=== PATIENT | female | born 1980 | race Caucasian/White ===

== ENCOUNTER 2018-02-28 10:21 | Observation (INO) | payer BC ==
[~2018-02-28 10:21] MED LIST: Clindamycin 900 MG/D5W BAG(*) 900 MG/50 ML BAG IVPB ONE
[2018-02-28] MEDS ORDERED: Ondansetron INJ* 2 MG/ML VIAL ONE ×4 (10:25→19:52)
[2018-02-28] MEDS ORDERED: Scopolamine 1.5 mg* PATCH ONE (10:25)
[2018-02-28] MEDS ORDERED: Naproxen TAB* 250 MG ONE (10:25)
[2018-02-28] MEDS ORDERED: LORazepam TAB(*) 1 MG ONE (10:26)
[2018-02-28] MEDS ORDERED: oxyCODONE SR TAB(*) 10 MG TAB.SR ONE (10:26)
[2018-02-28 11:19] LABS: ABS Basophils 0 10^3/ul (0-0.2); ABS Eosinophils 0 10^3/ul (0-0.6); ABS Lymphocytes 1.1 10^3/ul (1.0-4.8); ABS Monocytes 0.4 10^3/ul (0-0.8); ABS Neutrophils 2.3 10^3/ul (1.5-7.7); ABS Nucleated RBC 0 10^3/ul; Eosinophil % 0.5 % (0-6); Hematocrit 40 % (35-47); Hemoglobin 14.1 g/dl (12.0-16.0); Lymphocyte % 28.8 % (25-47); Mean Corpuscular HGB Conc 35 g/dl (31-36); Mean Corpuscular Hemoglobin 32 pg (27-31); Mean Corpuscular Volume 92 fL (80-97); Nucleated Red Blood Cells % 0.1; Platelet Count 213 10^3/ul (150-450); Red Blood Count 4.39 10^6/ul (4.00-5.40); Red Cell Distribution Width 12 % (10.5-15); White Blood Count 3.8 10^3/ul (3.5-10.8)
[2018-02-28 11:30] LABS: INR 0.94 (0.77-1.02)
[2018-02-28 11:39] LABS: EGFR Non-African American 96.8 (>60)
[2018-02-28] MEDS ORDERED: fentaNYL* 50 MCG/ML 2 ML VIAL (100 MCG VIAL) ONE ×3 (14:02→15:58)
[2018-02-28] MEDS ORDERED: Iohexol 350 (CONTRAST) 200 ML MDV IV ONE ×2 (14:03→15:45)
[2018-02-28] MEDS ORDERED: Lidocaine 1% INJ* 10 MG/ML 30 ML SDV ONE (14:03)
[2018-02-28] MEDS ORDERED: Midazolam* 1 MG/ML 10 ML VIAL (10 MG) ONE (14:03)
[2018-02-28] MEDS ORDERED: Heparin 2 UNITS/ML IVPREMIX* 2,000 ML IV ONE (14:03)
[2018-02-28] MEDS ORDERED: Naloxone* 0.4 MG/ML 1 ML VIAL ONE (14:04)
[2018-02-28] MEDS ORDERED: Flumazenil* 0.1 MG/ML 5 ML MDV ONE (14:04)
[2018-02-28] MEDS ORDERED: nitroGLYCERIN DRIP* 25,000 MCG/250 ML BTL ONE (14:15)
[2018-02-28] MEDS ORDERED: Ketorolac INJ* 30 MG/ML 1 ML VIAL ONE ×2 (14:16→17:27)
[2018-02-28] MEDS ORDERED: HYDROmorphone PCA* 20 MG/20 ML PCA.SYRING ONE (14:30)
[2018-02-28] MEDS ORDERED: Heparin 2 UNITS/ML IVPREMIX* 1,000 ML IV ONE (17:13)
--- NOTE | 2018-02-28 18:37 | PN ---
Progress Note - Progress Note Date of Service: 02/28/18 SOAP: Subjective: Pain and nausea currently controlled. Objective: Selected Entries 02/28/18 02/28/18 18:00 18:17 Temperature 97.3 F Temperature Temporal Artery Source Scan Pulse Rate 56 Respiratory 16 Rate Blood Pressure 145/93 (mmHg) O2 Sat by Pulse 97 Oximetry Patient on Room Yes Air Sleepy, but arousable to voice. NAD Abd is soft, nontender Arteriotomy site is soft, nontender Dressing CDI 2+ pulses in RLE Assessment: 38 YOF status post UAE with pain and nausea adequately controlled in PACU. Plan: 1. Routine post UAE protocol. 2. To [facility]. 3. Hospitalists to admit.
[2018-02-28] MEDS ORDERED: PROCHLORPERAZINE INJ 5 MG/ML 2 ML VIAL IV PRN (20:56)
[2018-02-28] MEDS ORDERED: PROCHLORPERAZINE INJ 5 MG/ML 2 ML VIAL ONE (20:58)
--- NOTE | 2018-02-28 22:19 | HP ---
CC: Dr. Mckenzie; Dr. Colunga * [facility] MEDICINE HISTORY AND PHYSICAL: DATE OF ADMISSION: 02/28/18 PRIMARY CARE PHYSICIAN: Dr. Colunga. ATTENDING PHYSICIAN: Dr. Corey Ricks * (dictation provided by Sandy Pope NP). CHIEF COMPLAINT: Planned uterine fibroid embolization. HISTORY OF PRESENT ILLNESS: Ms. Laney Lucero is a 38-year-old female with a past medical history for depression and recent diagnosis of uterine fibroids who presented to the hospital today for a planned uterine fibroid embolization. Ms. Lucero is reported to have originally followed up at [facility] around 11/14/17 for concern of abdominal pain and at that time she went on for a pelvic ultrasound, which ultimately showed "fibroid uterus as described above with largest fibroid measuring approximately 15 cm in greatest dimension." She followed up with Dr. Andrews initially and then had had a consultation with Dr. Carlos Kauffman regarding a possible uterine fibroid embolization. She had subsequent followup with Dr. Mckenzie. The patient states that she has no wish for in the future and that she would like to have definitive treatment with a hysterectomy. Dr. Mckenzie has reviewed the case with Dr. Kauffman and the recommendation is for the patient to have undergo uterine fibroid embolization prior to her hysterectomy to decrease bleeding during surgery and also debulk the fibroids for ease of removal. PAST MEDICAL HISTORY: 1. Depression. 2. Uterine fibroids. FAMILY HISTORY: Reviewed. Noncontributory. SOCIAL HISTORY: Patient is reported to be a light smoker and to drink 2-3 times a week, approx 2-3 drinks. No report of drug abuse. REVIEW OF SYSTEMS: A 14-point review of systems was completed with Ms. Lucero and all those not mentioned above were negative. PHYSICAL EXAMINATION GENERAL: Ms. Lucero is lying in the bed. She is in no acute distress. VITAL SIGNS: Temperature 97.3, pulse rate 54, respiratory rate 16, O2 saturation 95% on room air, blood pressure 131/81. LUNGS: Clear to auscultation bilaterally with no accessory muscle use and good aeration. HEART: S1, S2. No murmur, rub, or gallop and regular. ABDOMEN: Soft, nontender. Bowel sounds positive x4. EXTREMITIES: No cyanosis or edema. NEUROLOGIC: She is drowsy after OR, but she awakens to voice and then falls back to sleep. She moves all extremities. There is no facial asymmetry or focal weakness. Extraocular movements are intact. SKIN: Intact. LABORATORY DATA: WBC 3.8, hemoglobin 14.1, hematocrit 40, platelet count 213. INR 0.94. Sodium 138, potassium 3.7, chloride 109, serum bicarbonate 22, BUN 12, creatinine 0.68, glucose 86. Beta-hCG less than 0.60. ASSESSMENT AND PLAN: Ms. Lucero is a 38-year-old female with a past medical history of depression and recent discovery of uterine fibroids leading to abdominal pain with plans ultimately for hysterectomy, who has presented today for a scheduled uterine fibroid embolization for debulking of fibroids prior to the surgery. Our plans are for observation in the hospital for the followin. Status post uterine fibroid embolization. The patient is currently in the PACU and is drowsy. She will be moving shortly over to short-stay surgical unit. While there, she will have pain medication and antiemetics as needed per routine. We will be advancing the diet starting with clear liquids as tolerated. She will be up and mobile with assistance from nursing staff. 2. DVT prophylaxis with SCDs. 3. Code status is full code. TIME SPENT: Approximately 45 minutes were spent on the admission of this patient, more than half the time was spent with the patient at the bedside and with Dr. Kauffman reviewing the events leading up to this hospitalization, performing the physical examination, and reviewing my plan of care. SANDY POPE NP [id number]/[facility]PS #: [id number] MARY ANN
[2018-02-28] MEDS ORDERED: NS 0.9% 1000 ML* 1,000 ML IVPB SCH (22:51)
[2018-02-28] MEDS ORDERED: Naloxone* 0.4 MG/ML 1 ML VIAL IV PUSH PRN (22:51)
[2018-02-28] MEDS ORDERED: HYDROmorphone PCA* 20 MG/20 ML PCA.SYRING PCA SCH (23:00)
[2018-02-28] MEDS: Ketorolac INJ* 15 MG/ML 1 ML VIAL IV PUSH SCH (23:24)
[2018-02-28] MEDS: Ondansetron INJ* 2 MG/ML VIAL IV SCH (23:24)
[2018-03-01] MEDS: Ketorolac INJ* 15 MG/ML 1 ML VIAL IV PUSH SCH (05:39)
[2018-03-01] MEDS: Ondansetron INJ* 2 MG/ML VIAL IV SCH (05:39)
[2018-03-01] MEDS ORDERED: HYDROcodone/ACETAMIN 5-325 MG* 1 TAB PO PRN (09:00)
--- NOTE | 2018-03-01 09:09 | PN ---
Progress Note - Progress Note Date of Service: 03/01/18 SOAP: Subjective: The patient had isolated episodes of emesis overnight but nausea and emesis are currently controlled. She has been drinking ice water since yesterday. Pain is controlled at 06/16 currently. + void. Objective: Selected Entries 03/01/18 04:43 Temperature 97.9 F Temperature Oral Source Pulse Rate 54 Respiratory 16 Rate Blood Pressure 129/72 (mmHg) O2 Sat by Pulse 99 Oximetry NAD, AAO x 3 Abd is mildly tender Uterine fundus palpable at the level of the umbilicus Right groin arteriotomy site is soft, NT Dressing is clean, dry and intact 2+ pulses at right LE RLE is grossly neuromuscular intact Assessment: 38 YOF POD #1 status post uterine fibroid embolization with pain and nausea adequately controlled. Plan: 1. Transition IV to PO pain and nausea medication regimen. 2. Cautiously advance diet. 3. Encourage ambulation with assistance. 4. Anticipated outpatient post UFE regimen will include the following: * Toradol 10 mg PO Q 6 hours x 3 days, dispense #15, 1 refill * AFTER 3 days of Toradol, start Naproxen 250 mg PO every 12 hours x 3 days (DO NOT COMBINE TORADOL AND NAPROXEN) * [place] 5/325 1 or 2 tablets PO Q 6 hours PRN x 5 days, dispense #30 (thirty), no refills * Zofran 4 mg PO Q 6 hours x 5 days, dispense #30, 1 refill * Scopoloamine 1.5 mg TD patch: on the morning of 05/21/17 replace current patch with new patch and wear x 3 days Patient strongly advised to purchase laxative tea (E.g. Smooth Move) and drink one cup daily x 1 week to avoid constipation.
[2018-03-01] MEDS ORDERED: Ketorolac TAB * 10 MG TAB PO SCH (11:00)
[2018-03-01] MEDS ORDERED: Ondansetron TAB* 4 MG PO SCH (11:00)
[2018-03-01 11:55] VITALS: BP 110/64
--- NOTE | 2018-03-01 13:42 | PN ---
Progress Note - Progress Note Date of Service: 03/01/18 SOAP: Subjective: Pain controlled at 2/10. No nausea or emesis. Ate small breakfast and lunch without issue. Objective: Selected Entries 03/01/18 11:11 Temperature 98.0 F Temperature Temporal Artery Source Scan Pulse Rate 70 Respiratory 16 Rate Blood Pressure 110/64 (mmHg) Blood Pressure 73 Mean O2 Sat by Pulse 99 Oximetry NAD, AAO x 3 Assessment: 38 YOF POD #1 Uterine Fibroid Embolization with pain and nausea well controlled. Plan: 1. Discussed options with Laney and her partner for repeat right uterine artery embolization and upcoming surgery. 2. Case discussed with Dr. Mckenzie as well. 3. Okay for D/C to home. 4. Pres[place] to be [place] [facility] [place] d/w Kelsy Alejo NP
--- NOTE | 2018-03-01 23:04 | RAD ---
CPT II Codes: G9500 Procedure(s) performed: * Pelvic arteriogram including the lower abdominal aorta, bilateral iliac arteries including the proximal portions of the superficial femoral arteries and femoral profundi. * Catheter arteriography of the bilateral uterine arteries. * Catheter embolization of the left uterine artery. Date of service: February 28, 2018 Indication for procedure: Severe pelvic pain in the presence of large uterine fibroids Comparison: MRI of the pelvis February 27, 2018 Contrast: 160 mL Omnipaque 350 Fluoroscopy Time: 47.7 minutes Vessels Accessed: Percutaneous access was obtained with ultrasound guidance in the right common femoral artery in the retrograde direction towards the heart. Catheter arteriography was performed with the catheter tip in the following arteries: Aorta, Bilateral common iliac arteries, Bilateral internal iliac arteries and Bilateral uterine arteries. Anesthesia: Conscious sedation with IV Fentanyl and Versed as well as local 1% lidocaine injected locally at the arteriotomy site. Conscious sedation time: Timeout: 1426 hours Case end: 1731 hours Total conscious sedation time: 3 hours and 5 minutes Additional medications: * 1000 mcg IA nitroglycerin injected intermittently throughout the course of the procedure to alleviate arterial spasm. * Intra-arterial Toradol, 15 mg injected into the left uterine artery. * Intravenous Toradol, 30 mg. * Prior to the procedure the patient received: Ativan 1 mg p.o. Naproxen sodium 250 mg p.o. OxyContin 10 mg p.o. Scopolamine patch 1.5 mg transdermal applied to the mastoid process. Zofran 4 mg IV Antibiotic prophylaxis was provided by Clindamycin 900 mg IV PROCEDURE NOTE AND INTRAPROCEDURAL IMAGING FINDINGS: Immediately prior to the procedure the patient signed consent after thoroughly discussing all risks and benefits. The patient was positioned on the fluoroscopy table in the supine position and the bilateral groins were shaved, prepped and draped in standard sterile fashion. Using fluoroscopic imaging the location of the right common femoral head was marked externally with a skin marker on the patient's groin. Utilizing sonographic guidance and palpation the right common femoral artery was cannulated overlying the right femoral head with an 21-gauge needle. An ultrasound image was saved. A microwire was slowly and smoothly advanced to the aortic bifurcation under fluoroscopic imaging. No buckling of the wire was visualized to indicate dissection. Over the wire a 5-Singaporean catheter was advanced into the artery, the inner stiffener removed and the microwire was replaced with a 0.035" Bentsen wire which was advanced into the aorta. Finally the 5 [place]an catheter was exchanged for a 5 Singaporean sidearm sheath. Utilizing a 0.035" wire and 5-Singaporean C2 catheter the contralateral left common iliac artery was accessed. Contrast arteriography was performed to the C2 catheter and the tip of the left common iliac artery. The wire was advanced under fluoroscopic control to the proximal left superficial femoral artery. The C2 catheter was removed and over the wire a 5 [place]an Merit Impress catheter was advanced over the iliac bifurcation and the reverse curve was formed in the lower abdominal aorta. Utilizing the reverse curve catheter and the wire the ipsilateral right common iliac artery was selected. With the tip of the catheter in the proximal most portion of the right internal iliac artery, angiography was performed to detail the branches of the right internal iliac artery and to locate the ostium of the right uterine artery. Arteriograms in multiple oblique projections were performed to best discern the branch point of the uterine artery. Multiple attempts were made to cannulate the right uterine artery including roadmap imaging and multiple projection image acquisition. Attempt was made to cannulate the right uterine artery both with a 0.035 inch hydrophilic wire as well as microwire as. Severe long segment spasm of the proximal portion of the uterine artery prevented cannulation. At one point the catheter tip appeared to be in the ostium of the uterine artery but the wire would not advance. After multiple attempts to cannulate the right uterine artery it became clear that the arterial spasm was going to prevent wire and catheter cannulation. The decision was made to proceed to the left uterine artery in the hopes that the vasospasm would resolve later in the case. The 0.035" wire was reinserted into the 5-Singaporean catheter and the system was utilized to access the contralateral left internal iliac artery. With the tip of the 5 Singaporean Merit Impress catheter in the proximal most portion of the left internal iliac artery, angiography was performed to detail the branches of the left internal iliac artery and to locate the ostium of the left uterine artery. Arteriograms in multiple oblique projections were performed to best discern the branch point of the uterine artery. The uterine artery was selected and cannulated utilizing the combination 0.035" wire and 5-Singaporean catheter. In order to ensure maximum arterial inflow for the purpose of particle distribution, the microcatheter and wire system were advanced into the 5-Singaporean catheter securing access into the uterine artery. Under careful fluoroscopic control access was maintained in the uterine artery while pushing back the 5-Singaporean catheter until the tip resided more superiorly in the internal iliac artery. Prior to embolization, contrast injection into the horizontal portion of the left uterine artery demonstrated no large, obvious collateral blood flow to the ovary or a definite cervicovaginal branch descending inferiorly. Intra-arterial nitroglycerin was injected intermittently to alleviate arterial spasm. Under fluoroscopic control 3 vials Embospheres 500-700 um, 4 vials Embospheres 700-900 um and 2 vials Terumo HydroPearls 800 um were slowly injected into the left uterine artery to near complete stasis. Towards the end of embolization 15 mg of Toradol was injected intra-arterially. The microcatheter was pulled back into the more proximal descending portion of the uterine artery and contrast angiography depicted near complete stasis of the uterine artery. The microcatheter and microwire were removed. Contrast arteriography through the 5-Singaporean catheter in the left internal iliac artery demonstrated patency and brisk flow through all branches of the internal iliac artery with the exception of the left uterine artery which demonstrates near complete stasis. Utilizing the 5-Singaporean reverse curve Merit Impress catheter and the hydrophilic wire the left internal iliac artery was selected a second time. Additional attempts were made to cannulate the right uterine artery both with the 0.035 inch hydrophilic wire and microwires. Multiple projections were again acquired. At one point during the procedure the tip of the 5-Singaporean catheter was adjacent to the ostium of the right uterine artery and a wire would not advance into the lumen. At this point attempt to cannulate the right uterine artery were finally abandoned. The 5-Singaporean catheter and 0.035" wire were utilized to access the left external iliac artery which allowed a safe removal of the 5-Singaporean Impress catheter. The wire was then removed from the sheath. The access sheath was removed and pressure was held at the common femoral arteriotomy for approximately 15 minutes. There were no signs of bleeding at the right groin access site and the site was dressed with sterile gauze and Tegaderm. The patient tolerated the procedure well and was transferred to the short stay recovery unit in stable condition for routine overnight observation and pain and nausea control. SUMMARY OF PROCEDURE, IMAGING FINDINGS AND INTERVENTIONS PERFORMED: 1. Diagnostic studies performed: * Arterial access was obtained at the right common femoral artery in the retrograde direction (i.e. towards the heart) with ultrasound guidance. A sonographic image was recorded. * Diagnostic catheter angiography (necessary to perform the appropriate interventions) was performed with the catheter tip in the aorta, bilateral common iliac arteries, bilateral internal iliac arteries and bilateral uterine arteries. * Catheter arteriography was performed of the abdominal aorta, bilateral iliac arterial system and specifically the bilateral uterine arteries. 2. Interpretation of diagnostic studies performed: * Large hyperdense midline abdominal mass corresponding to the multiple uterine fibroids identified on the prior MRI. * Hypertrophied bilateral uterine arteries. * Severe arterial spasm was evident at the ostium and proximal portion of the right uterine artery which ultimately prevented cannulation. 3. Surgical interventions performed: * Near stasis embolization of the left uterine artery utilizing 3 vials Embospheres 500-700 um, 4 vials Embospheres 700-900 um and 2 vials Terumo HydroPearls 800 um. * Attempts to cannulate and subsequently embolize the right uterine artery were unsuccessful. 4. Interpretation of interventions performed: * Final arteriography demonstrated near complete stasis of the left uterine artery. PLAN: 1. The patient will be admitted to short stay surgical unit for routine overnight observation including pain and nausea control. 2. Outpatient clinical and imaging follow-up according to the Interventional Radiology protocol. 3. The inability to embolize the right uterine artery was discussed with the patient and with Dr. Mckenzie. Advised the patient that should she choose to pursue a second embolization we would access the left common femoral artery which will yield a technically simpler approach into the right uterine artery. At the time of this dictation the patient wants to think about her options and I encouraged her to do so.
--- NOTE | 2018-03-02 10:29 | DS ---
CC: Dorcas Colunga MD; Carlos Kauffman MD * DISCHARGE SUMMARY: DATE OF ADMISSION: 02/28/18 DATE OF DISCHARGE: 03/01/18 PRIMARY CAR PROVIDER: Dorcas Colunga MD ATTENDING PHYSICIAN: Dr. Ricks * (dictated by Kelsy Alejo NP). PRIMARY DIAGNOSIS: Status post uterine fibroid embolization. SECONDARY DIAGNOSIS: Depression. HISTORY OF PRESENT ILLNESS AND HOSPITAL COURSE: Ms. Lucero is a 38-year-old female with past medical history significant for depression and uterine fibroids , who presented to the hospital today for a planned uterine fibroid embolization with Dr. Kauffman. Please see the history and physical by Sandy Pope NP for a full summary of the events leading up to this hospitalization but in short, the patient had an ultrasound showing a large fibroid measuring approximately 15 cm in dimension and was referred to Dr. Kauffman by Dr. Andrews. She additionally also had followup with Dr. Mckenzie. The patient has no plans for future and would ultimately like a hysterectomy. The patient underwent uterine fibroid embolization on 01/29/18. The procedure was uneventful and the patient recovered well. She spent the night on the surgical unit, while there she received pain medication and antiemetics. She was started on a clear liquid diet and advanced to a regular diet. As on the morning of discharge, the patient reports feeling well. She has minimal pain, minimal tenderness to palpation of the left lower quadrant. Denies nausea, has a good appetite and was able to tolerate a regular breakfast this morning. She has been up ambulating independently in her room. She was seen by Dr. Kauffman, who felt as though she was stable for discharge home. He recommended a home medication regimen for pain and nausea. Ms. Lucero is stable for discharge today. Vital signs are as follows: Temp 98.0 , heart rate 70, respiratory rate 16, oxygen saturation 99% on room air, blood pressure 110/64. DISCHARGE MEDICATIONS: New Medications: 1. Hydrocodone/acetaminophen 5/325 mg 1 to 2 tabs p.o. q.6 hours for 5 days p.r.n. pain. 2. Toradol 10 mg p.o. q.6 hours for 3 days. 3. Naproxen 250 mg p.o. q.12 hours for 3 days, to be taken after 3 days of Toradol. 4. Ondansetron 4 mg p.o. q.6 hours for 5 days p.r.n. nausea or vomiting. 5. Scopolamine 1.5 mg patch, 1 patch transdermally q.72 hours. Continued home medications: 1. Vitamin D 5000 units p.o. daily. 2. Vitamin B12 1000 mcg p.o. daily. 3. Wellbutrin 100 mg p.o. daily. DISCHARGE PLAN: Ms. Lucero will be discharged to home. Activity will be as tolerated. Medications are noted above per Dr. Kauffman's recommendations. The patient will be prescribed Toradol to take q.6 hours for 3 days. After 3 days of Toradol, she should begin taking naproxen q.12 hours for 3 days. She has been instructed to not combine Toradol and naproxen. She will also receive [place] 1 to 2 tabs as needed for 5 days as well as Zofran as needed for 5 days. She is currently wearing a scopolamine patch and has been prescribed one more patch to be changed after 72 hours. The patient has been instructed to use a laxative tea 1 cup daily for 1 week to avoid constipation due to narcotic use. The patient has been instructed on postoperative care by Dr. Kauffman. She should follow up with her primary care provider in 4 to 7 days. She should return to the emergency room or nearest hospital for any worsening of symptoms, shortness of breath, lightheadedness, dizziness, chest discomfort, high fevers, chills, night sweats, loss of consciousness, or any other worrisome signs or symptoms. This is a summarized report of a complex medical history and hospital stay. For further details, please see the entire medical record. TIME SPENT: Approximately 35 minutes were spent on this discharge, greater than half of that time spent [id number] with the patient discussing discharge plans and instructions. KELSY ALEJO NP [id number]/[facility] #: [id number] MARY ANN
== END 2018-03-01 15:30 | disposition home or self-care (01) ==
LOC: CHICATH 10:21 → SSU 19:54
PROVIDERS: ADMIT Internal Medicine; ATTEND Internal Medicine
DX: D25.9 Leiomyoma of uterus, unspecified (principal); F32.9 Major depressive disorder, single episode, unspecified
CPT/HCPCS: 36415; 37243; 75736; 76937; 80048; 84702; 85025; 85610; 85730; 99156; 99157; A9270-GY; C1769; C1884; C1887; C1894; G0378; J0780; J1170; J1644; J1885; J2250; J2310; J2405; J3010

== ENCOUNTER 2018-03-29 07:13 | Observation (INO) | payer BC ==
[2018-03-29] MEDS ORDERED: Scopolamine 1.5 mg* PATCH ONE (07:53)
[2018-03-29] MEDS ORDERED: Naproxen TAB* 250 MG ONE (07:53)
[2018-03-29] MEDS ORDERED: Ondansetron ODT TAB* 4 MG ONE (07:54)
[2018-03-29] MEDS ORDERED: LORazepam TAB(*) 1 MG ONE (07:54)
[2018-03-29] MEDS ORDERED: oxyCODONE SR TAB(*) 10 MG TAB.SR ONE (07:54)
[2018-03-29] MEDS ORDERED: Clindamycin 900 MG/D5W BAG(*) 900 MG/50 ML BAG IVPB ONE (08:00)
[2018-03-29] MEDS ORDERED: Lidocaine 1% INJ* 10 MG/ML 30 ML SDV ONE (08:49)
[2018-03-29] MEDS ORDERED: Iohexol 350 (CONTRAST) 200 ML MDV IV ONE (08:49)
[2018-03-29] MEDS ORDERED: Heparin 2 UNITS/ML IVPREMIX* 2,000 ML IV ONE (08:49)
[2018-03-29] MEDS ORDERED: nitroGLYCERIN DRIP* 25,000 MCG/250 ML BTL ONE (08:50)
[2018-03-29] MEDS ORDERED: Midazolam* 1 MG/ML 5 ML VIAL (5 MG) ONE (08:53)
[2018-03-29] MEDS ORDERED: fentaNYL* 50 MCG/ML 2 ML VIAL (100 MCG VIAL) ONE ×3 (08:53→11:24)
[2018-03-29] MEDS ORDERED: Ketorolac INJ* 30 MG/ML 1 ML VIAL ONE (08:53)
[2018-03-29] MEDS ORDERED: Heparin(*) 1000 UNIT/ML 10 ML VIAL CATH LAB IV ONE (09:09)
[2018-03-29] MEDS ORDERED: VERAPAMIL 2.5 MG/ML 2 ML VIAL ** 5 mg/2 ml ONE (09:09)
[2018-03-29] MEDS ORDERED: HYDROmorphone PCA* 20 MG/20 ML PCA.SYRING PCA SCH (11:00)
[2018-03-29] MEDS ORDERED: Ondansetron INJ* 2 MG/ML VIAL IV PRN (13:11)
[2018-03-29] MEDS ORDERED: Acetaminophen TAB* 325 MG PO PRN (13:11)
--- NOTE | 2018-03-29 16:22 | PN ---
Progress Note - Progress Note Date of Service: 03/29/18 SOAP: Subjective: Pain rated at 4/10. +emesis x 2. + sips clears Objective: Selected Entries 03/29/18 13:45 Pulse Rate 48 Blood Pressure 146/91 (mmHg) Blood Pressure 101 Mean O2 Sat by Pulse 96 Oximetry NAD, AAO x 3 Sleepy, but arousable to voice Left wrist is soft and nontender 2+ left radial pulse LUE and hand neuromuscular function is grossly intact Left hand is warm to touch Abd is soft Uterine fundus is tender to palpation Assessment: 38 YOF s/p left radial arteriotomy RIGHT uterine artery embolization. Pain is reasonably well controlled, but +emesis x 2. Plan: 1. Add compazine 5 mg IV Q 6 hours PRN. 2. Otherwise standard post UFE protocol.
[2018-03-29] MEDS: Ketorolac INJ* 15 MG/ML 1 ML VIAL IV PUSH SCH ×2 (17:16→23:27)
[2018-03-29] MEDS: Ondansetron INJ* 2 MG/ML VIAL IV SCH ×2 (17:16→23:22)
[2018-03-29] MEDS: NS 0.9% 1000 ML* 1,000 ML IV SCH ×2 (17:21→22:32)
[2018-03-29] MEDS: PROCHLORPERAZINE INJ 5 MG/ML 2 ML VIAL IV PRN (19:13)
--- NOTE | 2018-03-29 20:29 | HP ---
CC: Carlos Kauffman MD; Jasen Mckenzie MD * ADMISSION HISTORY AND PHYSICAL: DATE OF ADMISSION: 03/29/18 CONSULTING INTERVENTIONAL RADIOLOGIST: Carlos Kauffman MD OUTPATIENT BIODIESEL TECHNOLOGY MANAGER: Jasen Mckenzie MD ATTENDING PHYSICIAN: Nikolay Gates MD * (DICTATED BY LINDA RECINOS) CHIEF COMPLAINT: Uterine fibroid embolization. HISTORY OF PRESENT ILLNESS: Ms. Lucero is a 38-year-old female with past medical history significant for uterine fibroids with previous uterine fibroid embolization 1 month ago with incomplete resolution of her symptoms as well as depression. The patient's symptoms associated with her uterine fibroids have been mainly abdominal pain, abdominal fullness. The patient's fibroid is quite large. The patient has a plan for future hysterectomy as she has no plans for future childbearing and these procedures are in preparation to decrease the risk of complications related to her hysterectomy. The patient is examined in the postoperative area and is quite drowsy. The patient has nausea and pain in her abdomen about 5/10, which is being well controlled with her CANVAS BASTER JUMPBASTING. The patient feels that the CANVAS BASTER JUMPBASTING is the main cause behind her nausea. The patient had no recent illnesses. The patient has had decrease in her abdominal pain at baseline since her previous uterine artery embolization. The patient has had no recent medical diagnoses. The patient has had diarrhea, which has been attributed to her fibroids, which has been improving over the past several weeks. The patient has had a co-worker, who was ill with reported flu, but the patient has had no symptoms consistent with the flu including shortness of breath, cough, fevers, or chills. The patient has no pain when she urinates. No dizziness when standing. The patient has had no recent changes in her medications. The patient has not taken any medications that would cause anticoagulation recently. PAST MEDICAL HISTORY: Depression, uterine fibroids. PAST SURGICAL HISTORY: Previous uterine fibroid embolization. FAMILY HISTORY: The patient's mother has hypertension. The patient's father has osteoarthritis. The patient's paternal grandfather in a car accident. The patient's paternal grandmother of old age in her 90s. The patient's maternal grandmother of non-Hodgkin's lymphoma. The patient's maternal grandfather of complications of alcoholism. The patient has a sister, who also has fibroids and a twin brother, who is healthy. SOCIAL HISTORY: The patient quit smoking approximately 2 years ago. The patient drinks 2 drinks approximately 2 to 3 times a week. Denies any illicit drug use. The patient's surrogate decision maker will be her partner. REVIEW OF SYSTEMS: A 14-point review of systems was reviewed and is negative except as above in the HPI. PHYSICAL EXAMINATION GENERAL: The patient is a 38-year-old female, who appears stated age and sitting comfortably in bed, in no acute distress. VITAL SIGNS: At the time of evaluation, temperature 97.3, pulse rate 49, respiratory rate 20, oxygen saturation 96% on room air, blood pressure 146/91. HEENT: Head: Normocephalic, atraumatic. Sclerae anicteric. No conjunctival injection. Nasal mucosa moist. Oral mucosa moist. No pharyngeal erythema, discharge, or exudate. NECK: Supple, nontender. No lymphadenopathy. No carotid bruits auscultated. No JVD. RESPIRATORY: Clear to auscultation bilaterally. No wheezes, rales, or rhonchi. Good air exchange bilaterally. CARDIAC: Regular rate and rhythm. No clicks, murmurs, gallops, or rubs. Pulses are 2+ in the bilateral dorsalis pedis, posterior tibialis, and radial areas. Radial occlusion device present on the left hand with adequate capillary refill distally. ABDOMEN: Soft. Tender to palpation mainly in the right lower quadrant. Palpable uterus. No hepatosplenomegaly. No abdominal bruits auscultated. No hepatojugular reflux. GENITOURINARY: No suprapubic or CVA tenderness. NEURO: Cranial nerves II through XII intact. No focal deficits. Alert and oriented x3. PSYCHIATRIC: Pleasant and cooperative. SKIN: Clean, dry, intact. No rash except for bruising on the right knee and left radial artery access point. LABORATORY DATA: Not obtained for this hospitalization. ASSESSMENT AND PLAN/IMPRESSION: Ms. Lucero is a 38-year-old female with past medical history significant for uterine fibroids with previous uterine fibroid embolization and depression, who presented for repeat routine scheduled uterine fibroid embolization, who is recovering well in the postoperative area. 1. Status post uterine fibroid embolization. This is a repeat procedure performed by Dr. Carlos Kauffman of Interventional Radiology. He will be co- managing this patient. The patient currently has pain control with a CANVAS BASTER JUMPBASTING, which will be transitioned to an oral regimen tomorrow if tolerated per protocol. The patient will have antiemetics with Zofran and Compazine as well as a scopolamine patch. The patient will be on clear liquid diet and advanced as tolerated. The patient will be monitored closely for postsurgical complications. The patient is currently stable. 2. Depression. Continue the patient's Wellbutrin. The patient is currently euthymic. 3. DVT prophylaxis: The patient is a low risk except for recent surgery. We will prescribe SCDs. 4. Code status: The patient is a full code. The patient's surrogate decision maker will be her partner as above. 5. Disposition: The patient is admitted to observation. TIME SPENT: Approximately 60 minutes were spent on the admission of this patient, 30 of which was spent [id number] with the patient obtaining history and physical and discussing treatment plan. Plan was discussed with my attending, Dr. Nikolay Gates, and he is in agreement. LINDA RECINOS [id number]/[facility] #: [id number] MTDLoren
[2018-03-29] MEDS ORDERED: buPROPion TAB* 100 MG PO SCH (22:00)
[2018-03-30] MEDS: PROCHLORPERAZINE INJ 5 MG/ML 2 ML VIAL IV PRN (02:23)
[2018-03-30] MEDS: NS 0.9% 1000 ML* 1,000 ML IV SCH ×2 (03:40→08:53)
[2018-03-30] MEDS: Ondansetron INJ* 2 MG/ML VIAL IV SCH (05:32)
[2018-03-30] MEDS: Ketorolac INJ* 15 MG/ML 1 ML VIAL IV PUSH SCH (05:38)
[2018-03-30] MEDS ORDERED: Cholecalciferol TAB* 1000 UNITS PO SCH (09:00)
[2018-03-30] MEDS ORDERED: Cyanocobalamin TAB* 500 MCG PO SCH (09:00)
[2018-03-30] MEDS ORDERED: HYDROcodone/ACETAMIN 5-325 MG* 1 TAB PO PRN (09:25)
[2018-03-30] MEDS ORDERED: Ondansetron INJ* 2 MG/ML VIAL IV PRN (09:28)
[2018-03-30] MEDS ORDERED: Ketorolac TAB * 10 MG TAB PO SCH (09:30)
--- NOTE | 2018-03-30 09:57 | PN ---
Progress Note - Progress Note Date of Service: 03/30/18 SOAP: I called the patient's room and spoke to her over the telephone. Subjective: Pain rated at 2/10 in the pelvis. Denies any pain at left wrist arteriotomy site. +Episodes of nausea that have been better controlled with PRN Compazine. No issues moving her left wrist, hand and fingers. + void Taking clear liquids and "nibbles" of breakfast Objective: Selected Entries 03/30/18 03/30/18 07:32 07:46 Temperature 98.9 F Temperature Oral Source Pulse Rate 56 Respiratory 18 Rate Blood Pressure 138/72 (mmHg) Blood Pressure 86 Mean O2 Sat by Pulse 98 Oximetry Assessment: 38 YOF POD #1 status post RIGHT uterine artery embolization from a left radial arteriotomy. Pain and nausea adequately controlled. Plan: 1. Transition IV to PO medications. 2. Replace scheduled Zofran with Compazine 10 mg PO Q 6 hours. 3. Discharge medications will include the following: * Toradol 10 mg PO every 6 hours x 3 days, 1 refill * After Toradol, start OTC Ibuprofen 600 mg PO every 6 hours OR Naproxen 225 mg PO every 8 hours x 3-5 days. DO NOT COMBINE IBUPROFEN/NAPROXEN WITH EACHOTHER OR WITH TORADOL * Scopolamine 1.5 mg transdermal. The morning of 04/01/18 remove current patch, replace with a new one and wear x 3 days. * Compazine 10 mg PO every 8 hours x 5 days, 1 refill * Grampian 5/325, take 1 or 2 tablets PO every 6 hours PRN 4. The patient and her partner were instructed to purchase laxative tea (e.g. Smooth Move) and drink one cup daily for 1 week. 5. Interventional Radiology clinic nurse will call patient 04/01/18 and 04/05/18 to inquire about her recovery. 6. The patient has my cell number and is encouraged to call me if any serious issues arise. Evaluation and plan was discussed with Kelsy Alejo NP over the telephone at 945 hours on 03/30/18.
[2018-03-30 11:15] VITALS: BP 141/77
[2018-03-30] MEDS ORDERED: Prochlorperazine TAB* 10 MG PO SCH (12:00)
--- NOTE | 2018-03-31 11:13 | DS ---
CC: Dr. Dorcas Colunga; Dr. Carlos Kauffman; Dr. Jasen Mckenzie * DISCHARGE SUMMARY: DATE OF ADMISSION: 03/29/18 DATE OF DISCHARGE: 03/30/18 PRIMARY CARE PROVIDER: Dr. Dorcas Colunga. INTERVENTIONAL RADIOLOGIST: Dr. Carlos Kauffman. OUTPATIENT SENIOR LINUX SYSTEMS ADMINISTRATOR: Dr. Jasen Mckenzie. ATTENDING PHYSICIAN: Dr. Carrasco * (dictated by Kelsy Alejo NP). PRIMARY DIAGNOSIS: 1. Uterine fibroid embolization. SECONDARY DIAGNOSIS: 1. Depression. HISTORY OF PRESENT ILLNESS AND HOSPITAL COURSE: Ms. Lucero is a 38-year-old female with a past medical history of uterine fibroids and depression, who presented to [facility] on 03/29/18, for an elective uterine fibroid embolization. Please see the history and physical by LINDA Stovall, for a complete summary of the events leading up to this hospitalization. In short, Ms. Lucero had an uterine fibroid embolization at the facility approximately 1 month ago and had incomplete resolution of her symptoms. She followed up with Dr. Kauffman and then decision was made to undergo a second uterine fibroid embolization. The procedure on 03/29/18 was uneventful and the patient recovered well afterwards. She initially was on a TANK CAR LOADER to manage her pain and that was discontinued yesterday. On my exam this morning, the patient reports feeling well. She is having some cramping, which she describes as "menstrual cramps," though she feels this pain is well managed on oral pain medications. She has not had any nausea or vomiting though appetite is not at her baseline. She recovered well from her procedure approximately 1 month ago and is anxious to return home as she feels she will recover well in her home environment. I will note that the embolization was done through a left wrist access point. On my assessment, the left wrist and hand have intact sensation to light touch. The hand is warm and the hand and wrist have appropriate movement and range of motion. The site to the left wrist is dry and intact and covered with a Tegaderm. Ms. Lucero is stable for discharge today. Vital signs are as follows: Temp 98.9 , heart rate 57, respiratory rate 18, oxygen saturation 99% on room air, blood pressure 141/77. DISCHARGE MEDICATIONS: New home medications: 1. Hydrocodone/acetaminophen 5/325 mg 1 to 2 tabs p.o. q.6 hours p.r.n. pain. 2. Ibuprofen 600 mg p.o. q.6 hours x5 days. 3. Ketorolac 10 mg p.o. q.6 hours x3 days. 4. Naproxen 220 mg p.o. q.8 hours for 5 days. 5. Compazine 10 mg p.o. q.8 hours x5 days. 6. Scopolamine patch 1.5 mg 1 patch transdermal q.72 hours. Continued home medications: 1. Bupropion 200 mg p.o. daily. 2. Vitamin D3 5000 units p.o. daily. 2. Vitamin B12 1000 units p.o. daily. DISCHARGE PLAN: Ms. Lucero will be discharged to home. Activity per Dr. Kauffman' s recommendations: You may resume showering, but avoid tub baths, hot tubs or swimming for 1 week. Avoid strenuous exercise and activity for 1 week. Slowly increase your activity after the first week. Pelvic rest for 4 weeks. Avoid vaginal intercourse and tampon usage. Do not drive until you are no longer taking prescription pain medication. Diet per Dr. Kauffman: Resume usual diet. If you have not done so already, you are strongly encouraged to purchase Smooth- Move tea or another laxative tea of your choice and drink 1 cup daily for 1 week. Increase fluid and fiber intake. You may want to add prune juice juice or an [id number] stool softener to your daily routine to keep your stool soft. Medications are noted above. Discharge medications have been prescribed per Dr. Kauffman's recommendations. The patient has been prescribed Toradol to take every 6 hours for 3 days. After Toradol, start [id number] ibuprofen 600 mg every 6 hours or naproxen 220 mg every 8 hours for 3 to 5 days. Do not combine ibuprofen and naproxen with each other or with Toradol. A scopolamine patch has been prescribed. The patient already has a patch in place. She should replace her current patch on 04/01/18, and wear the new one for 3 days. She can use Compazine every 8 hours for 5 days. Additionally, she has been prescribed Galva for which she can take 1 to 2 tablets every 6 hours as needed for pain. Dr. Kauffman has instructed the patient on additional information including reasons to seek care, the possibility of vaginal discharge or spotting, and wound care instructions for the wrist puncture site. The patient has been instructed to return to the emergency room or nearest hospital for any worsening of symptoms, shortness of breath, lightheadedness, dizziness, chest discomfort, high fever, chills, night sweats, loss of consciousness or any other worrisome signs or symptoms. This is a summarized report of a complex medical history and hospital stay. For further details, please see the entire medical record. TIME SPENT: Approximately 40 minutes was spent over this discharge, greater than half of that time spent [id number] with the patient discussing discharge plans and instructions. KELSY ALEJO NP [id number]/[facility] #: [id number] MARY ANN
== END 2018-03-30 12:00 | disposition home or self-care (01) ==
LOC: CHICATH 07:13 → SSU 14:22
PROVIDERS: ADMIT Internal Medicine; ATTEND Internal Medicine
DX: D25.9 Leiomyoma of uterus, unspecified (principal); F32.9 Major depressive disorder, single episode, unspecified; R10.9 Unspecified abdominal pain; Z87.891 Personal history of nicotine dependence
CPT/HCPCS: 37243; 75625; 76937; 96374; 96375; 96376; 99156; 99157; A9270-GY; C1769; C1884; C1887; G0378; J0780; J1644; J1885; J2250; J2405; J3010; Q0164

== ENCOUNTER 2018-10-18 05:56 | Inpatient (IN) | payer BC, OTHER ==
[~2018-10-18 05:56] MED LIST changes: +Buffered Lidocaine 1% SYRIN* 1 ML/SYRINGE INTRADERM ONE; -Clindamycin 900 MG/D5W BAG(*) 900 MG/50 ML BAG IVPB ONE; +Lactated Ringers 1000 ML Bag* 1,000 ML IV SCH
--- OUTSIDE RECORDS SUMMARY | 2018-10-18 05:59 | XMS REPORT | Continuity of Care Document ---
:1980 External Reference #:[id number] Author Name Lee Ann Novak Care Team Providers Name Role Phone Dorcas Colunga MD Primary Care Physician Unavailable Payers Date Identification Numbers Payment Provider Subscriber Policy Number: [id number] [facility] Laney Lucero PayID: [id number] [address] [place] [address] Problems Active Problems Provider Date Uterine leiomyoma Carlos Kauffman M.D. 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 Recreational Drug Use Denies Drug Use Tobacco Use Start: Unknown End: Patient is a former Unknown smoker Smoking Status Reviewed: 10/10/18 Patient is a former smoker Exercise Type/Frequency Does not exercise Allergies, Adverse Reactions, Alerts Description No Known Drug Allergies Medications Active Medications SIG Qnty Indications Ordering Provider Date Vitamin D3 Maximum take one Unknown Strength capsule/tablet 5000Unit Capsules daily by mouth Vitamin B12 1 by mouth every Unknown 1000mcg Tablets day ER Bupropion HCL ER (SR) take 1 by mouth Unknown 200mg each day Tablets ER 12HR History Medications No Active Medications Unknown 11/26/2017 - 12/12/2017 Vital Signs Date Vital Result Comment 10/10/2018 10:29am Height 67 inches 5'7" Weight 190.00 lb Heart Rate 78 /min BP Systolic 142 mmHg BP Diastolic 87 mmHg O2 % BldC Oximetry 97 % BMI (Body Mass Index) 29.8 kg/m2 Last Menstrual Period [id number] 05/15/2018 8:24am Height 67 inches 5'7" Weight 190.00 lb Heart Rate 74 /min BP Systolic Sitting 120 mmHg Lue reg cuff BP Diastolic Sitting 78 mmHg Lue reg cuff Respiratory Rate 18 /min BMI (Body Mass Index) 29.8 kg/m2 01/31/2018 3:48pm Height 67 inches 5'7" Weight 197.00 lb Heart Rate 81 /min BP Systolic 124 mmHg BP Diastolic 82 mmHg O2 % BldC Oximetry 98 % BMI (Body Mass Index) 30.9 kg/m2 Last Menstrual Period [id number] 12/12/2017 4:09pm Height 67 inches 5'7" Weight 204.00 lb w/ shoes Heart Rate 90 /min BP Systolic Sitting 122 mmHg lue lg cuff BP Diastolic Sitting 82 mmHg lue lg cuff BMI (Body Mass Index) 31.9 kg/m2 Ejection Fraction no echo/ss Results Test Date Facility Test Result H/L Range Note Basic Metabolic 02/28/2018 [facility] Sodium 138 mmol/L N 135- [address] [place] [address] [phone] Potassium 3.7 mmol/L N 3.5-5.0 Chloride 109 mmol/L N 101-111 Co2 Carbon Dioxide 22 mmol/L N 22-32 Anion Gap 7 mmol/L N 2-11 Glucose 86 mg/dL N 70-100 Blood Urea Nitrogen 12 mg/dL N 6-24 Creatinine 0.68 mg/dL N 0.51-0.95 BUN/Creatinine Ratio 17.6 N 8-20 Calcium 9.1 mg/dL N 8.6-10.3 Egfr Non- 96.8 >60 Egfr 117.2 >60 1 CBC Auto Diff 02/28/2018 [facility] White Blood 3.8 10^3/uL N 3.5-10.[address] [place] [address] [phone] Red Blood Count 4.39 10^6/uL N 4.00-5.40 Hemoglobin 14.1 g/dL N 12.0-16.0 Hematocrit 40 % N 35-47 Mean Corpuscular Volume 92 fL N 80-97 Mean Corpuscular Hemoglobin 32 pg High 27-31 Mean Corpuscular HGB Conc 35 g/dL N 31-36 Red Cell Distribution Width 12 % N 10.5-15 Platelet Count 213 10^3/uL N 150-450 Mean Platelet Volume 8.0 um3 N 7.4-10.4 Abs Neutrophils 2.3 10^3/uL N 1.5-7.7 Abs Lymphocytes 1.1 10^3/uL N 1.0-4.8 Abs Monocytes 0.4 10^3/uL N 0-0.8 Abs Eosinophils 0 10^3/uL N 0-0.6 Abs Basophils 0 10^3/uL N 0-0.2 Abs Nucleated RBC 0 10^3/uL Granulocyte % 60.0 % N 38-83 Lymphocyte % 28.8 % N 25-47 Monocyte % 10.0 % High 0-7 Eosinophil % 0.5 % N 0-6 Basophil % 0.7 % N 0-2 Nucleated Red Blood Cells % 0.1 Inr/Protime 02/28/2018 [facility] Inr 0.94 N 0.77-1.02 [address] [place] [address] [phone] Laboratory test 02/28/2018 [facility] Partial 33.6 seconds N 26.0-36.3 finding [address] [facility] [place] [address] PTT [phone] HCG < 0.60 mIU/mL 2 Basic Metabolic Panel 02/26/2018 [facility] Sodium 139 mmol/L N 135-145 [address] [place] [address] [phone] Potassium 4.0 mmol/L N 3.5-5.0 Chloride 109 mmol/L N 101-111 Co2 Carbon Dioxide 22 mmol/L N 22-32 Anion Gap 8 mmol/L N 2-11 Glucose 88 mg/dL N 70-100 Blood Urea Nitrogen 11 mg/dL N 6-24 Creatinine 0.71 mg/dL N 0.51-0.95 BUN/Creatinine Ratio 15.5 N 8-20 Calcium 9.3 mg/dL N 8.6-10.3 Egfr Non- 92.1 >60 Egfr 111.5 >60 3 1 Because ethnic data is not always readily available, this report includes an eGFR for both -Americans and non- Americans. The National Kidney Disease Education Program (NKDEP) does not endorse the use of the MDRD equation for patients that are not between the ages of 18 and 70, are , have extremes of body size, muscle mass, or nutritional status, or are non- or non-. According to the National Kidney Foundation, irrespective of diagnosis, the stage of the disease is based on the level of kidney function: Stage Description GFR(mL/min/1.73 m(2)) 1 Kidney damage with normal or decreased GFR 90 2 Kidney damage with mild decrease in GFR 60-89 3 Moderate decrease in GFR 30-59 4 Severe decrease in GFR 15-29 5 Kidney failure <15 (or dialysis) 2 <5.0 Negative 5.0 - 25.0 Indeterminate (Repeat testing recommended after 72 hours) >25.0 Positive Perimenopausal women can display HCG levels of up to 20 mIU/mL 3 Because ethnic data is not always readily available, this report includes an eGFR for both -Americans and non- Americans. The National Kidney Disease Education Program (NKDEP) does not endorse the use of the MDRD equation for patients that are not between the ages of 18 and 70, are , have extremes of body size, muscle mass, or nutritional status, or are non- or non-. According to the National Kidney Foundation, irrespective of diagnosis, the stage of the disease is based on the level of kidney function: Stage Description GFR(mL/min/1.73 m(2)) 1 Kidney damage with normal or decreased GFR 90 2 Kidney damage with mild decrease in GFR 60-89 3 Moderate decrease in GFR 30-59 4 Severe decrease in GFR 15-29 5 Kidney failure <15 (or dialysis) Procedures Date Code Description Status 03/29/2018 53363 Moderate Sedation Services; Same Phys Each Additional 15 Completed Mins 03/29/2018 70492 Moderate Sedation Services; Same Phys Intl 15 Mins; PT >=5 Completed Years 03/29/2018 13474 Ultrasound Guidance For Vascular Access Completed 03/29/2018 77446 Vascular Embolization Or Occlu Tumor Organ Ischemia Or Completed Infarction 03/29/2018 33493 Catheter Placement Arterial System Init 3RD Order Completed Abdom/Pelv/Low 03/29/2018 50221 Cath Placement-Abdom, Pelvic Or Lower Extremity Completed 02/28/2018 24913 Moderate Sedation Services; Same Phys Each Additional 15 Completed Mins 02/28/2018 75754 Moderate Sedation Services; Same Phys Intl 15 Mins; PT >=5 Completed Years 02/28/2018 45722 Ultrasound Guidance For Vascular Access Completed 02/28/2018 98501 Vascular Embolization Or Occlu Tumor Organ Ischemia Or Completed Infarction 02/28/2018 23958 Catheter Placement Arterial System Init 3RD Order Completed Abdom/Pelv/Low Encounters Type Date Location Provider Dx Diagnosis Office Visit 05/15/2018 Abilio Hernandez5.9 Leiomyoma of 8:15a [facility] M.Jovita uterus, unspecified Office Visit 03/01/2018 Yobany Kauffman D25.9 Leiomyoma of 11:34a [facility] uterus, unspecified Office Visit 03/01/2018 [facility] Kelsy Alejo, CHAP[place]O D25.9 Leiomyoma of 11:29a Assoc,pc uterus, Hospitalists unspecified Office Visit 02/28/2018 [facility] Sandy Pope, N.P. D25.9 Leiomyoma of 11:28a Assoc,pc uterus, Hospitalists unspecified Office Visit 01/31/2018 [facility] Abilio Keller5.1 Intramural 3:30p of [facility] leiomyoma of uterus Office Visit 12/12/2017 Abilio Hernandez5.9 Leiomyoma of 3:45p [facility] MLarry uterus, unspecified Plan of Treatment Future Appointment(s):10/25/2018 10:30 am - Jasen Mckenzie MD at [facility]10/18/2018 7:30 am - Jasen Mckenzie MD at [facility]10/10/2018 - Jasen Mckenzie MDD25.1 Intramural leiomyoma of uterusFollow up: Follow up appt one week post opN92.4 Excessive bleeding in the premenopausal period
[2018-10-18] MEDS ORDERED: ceFAZolin 2 GM in NS PREMIX(*) 2 GM/100 ML BAG IVPB ONE (06:29)
[2018-10-18] MEDS ORDERED: VASOPRESSIN 20 UNITS/ML 1 ML VIAL ONE (07:30)
[2018-10-18] MEDS ORDERED: fentaNYL* 50 MCG/ML 2 ML VIAL (100 MCG VIAL) ONE ×3 (07:38→10:26)
[2018-10-18] MEDS ORDERED: Midazolam* 1 MG/ML 2 ML VIAL (2 MG) ONE (07:38)
[2018-10-18] MEDS ORDERED: Propofol* 10 MG/ML 20 ML BTL ONE ×2 (08:27→09:05)
[2018-10-18] MEDS ORDERED: Succinylcholine* 20 MG/ML 10 ML VIAL ONE (08:27)
[2018-10-18] MEDS ORDERED: Lidocaine 2% PF * 5 ML VIAL ONE (08:27)
[2018-10-18] MEDS ORDERED: Glycopyrrolate IV* 0.2 MG/ML 1 ML VIAL ONE (08:27)
[2018-10-18] MEDS ORDERED: Ondansetron INJ* 2 MG/ML VIAL ONE ×2 (08:27→11:00)
[2018-10-18] MEDS ORDERED: Dexamethasone IV* 4 MG/ML 1 ML (4 MG) ONE (08:27)
[2018-10-18] MEDS ORDERED: Naloxone* 0.4 MG/ML 1 ML VIAL IV PUSH PRN (10:13)
[2018-10-18] MEDS ORDERED: Morphine PCA ADULT* 5 MG/ML 30 ML PCA SCH (11:00)
[2018-10-18] MEDS: Ondansetron INJ* 2 MG/ML VIAL IV PRN ×2 (11:03→18:06)
[2018-10-18] MEDS ORDERED: fentaNYL* 50 MCG/ML 2 ML VIAL (100 MCG VIAL) IV PRN (11:13)
[2018-10-18] MEDS ORDERED: Naloxone* 0.4 MG/ML 1 ML VIAL IV PRN (11:13)
[2018-10-18] MEDS: Lactated Ringers 1000 ML Bag* 1,000 ML IV SCH (18:45)
--- NOTE | 2018-10-18 23:37 | OP ---
CC: [facility]; Dr. Moncho Andrews, [facility] OPERATIVE REPORT: DATE OF OPERATION: 10/18/18 DATE OF : 80 SURGEON: Jasen Mckenzie MD. MACHINE EGG WASHER: Dr. Andrews. ANESTHESIOLOGIST: Dr. Gómez. ANESTHESIA: General endotracheal anesthesia. PRE-OP DIAGNOSES: 1. Fibroid uterus. 2. Dysmenorrhea. POST-OP DIAGNOSES: 1. Fibroid uterus. 2. Dysmenorrhea. ESTIMATED BLOOD LOSS: 100 cc. FLUIDS: 1800 cc. URINE OUTPUT: 200 cc, clear urine. FINDINGS: Enlarged fibroid uterus, large, approximately 12 cm fundal fibroid, and an approximately 4 cm lower segment anterior fibroid. Normal appearing ovaries bilaterally. COMPLICATIONS: None. COUNTS: Sponge, lap, and needle counts were correct x2 and the patient was brought to recovery room, awakened and in stable condition. DESCRIPTION OF PROCEDURE: The patient was brought to the operating room. When general anesthesia wa s found to be adequate, the patient was prepped and draped in the usual sterile fashion in the dorsal supine position, after a Kirk catheter had been placed under sterile conditions. Time-out was perf ormed. A Pfannenstiel skin incision was made approximately 2 cm above the symphysis pubis and this w as carried down to the underlying layer of fascia. The fascia was incised in the midline and the fac ial incision as extended laterally using the curved Tellez scissors. The fascia was grasped with a [facility] her clamp and the rectus muscle was dissected using sharp and and blunt dissection. The muscle separ ated in the midline, the peritoneum was identified, grasped between 2 pickups, elevated, and entered with Metzenbaum scissors. The pelvis was examined, with the above findings noted. The bowel was pac ked away with moist laparotomy sponges. Two long Bridgette clamps were placed on the cornu and used for retraction. The round ligaments were identified on both sides. These were clamped, transacted, and suture ligated with 0 Vicryl. The anterior leaf of the broad ligament was incised along the bladder r eflection to the midline from both sides. The bladder was gently dissected from the lower uterine se gment using the Metzenbaum scissors. The uteroovarian ligaments on both sides were doubly clamped, t ransacted, and suture ligated using 0 Vicryl. Hemostasis was visualized. The uterine arteries were s keletonized bilaterally, doubly clamped with the Bethel clamps, transacted, and doubly suture ligated with 0 Vicryl. Again, hemostasis was assured. The uterus was amputated from the cervix using the c autery and the uterus was sent to Pathology. The cervical angles were closed using [id number] s utures of 0 Vicryl and the remainder of the cervix was closed using 0 Vicryl. Excellent hemostasis w as assured. The pelvis was copiously irrigated with warm normal saline. The pedicles were examined and found to be hemostatic. The ureters were identified on both sides and found to be intact. All l aparotomy sponges and instruments were removed from abdomen. The peritoneum was closed using 3-0 Branden ryl. The facia was then closed using 0 Vicryl. Hemostasis was assured. The subcutaneous tissue was reapproximated with 3-0 Vicryl due to the depth of the subcutaneous tissue. The subsequent tissue wa s closed with 6 interrupted sutures of 2-0 Vicryl. The skin was then closed with 4-0 Monocryl in a s ubcuticular fashion and Steri-Strips were applied and pressure dressing was then applied. Sponge, la p, and needle count were correct x2 and the patient was brought to the recovery room, awake and in st able condition. [id number]/[facility] #: [id number]
[2018-10-19] MEDS: Lactated Ringers 1000 ML Bag* 1,000 ML IV SCH (02:24)
[2018-10-19 06:20] LABS: ABS Lymphocytes 0.8 10^3/ul (1.0-4.8); ABS Monocytes 0.9 10^3/ul (0-0.8); Hematocrit 28 % (35-47); Hemoglobin 9.5 g/dL (12.0-16.0); Lymphocyte % 10.4 %; Mean Corpuscular HGB Conc 34 g/dL (31-36); Mean Corpuscular Hemoglobin 32 pg (27-31); Mean Corpuscular Volume 93 fL (80-97); Mean Platelet Volume 7.8 fL (7.4-10.4); Platelet Count 175 10^3/uL (150-450); Red Blood Count 2.99 10^6 /uL (3.70-4.87); Red Cell Distribution Width 13 % (10-15); White Blood Count 7.7 10^3/uL (3.5-10.8)
[2018-10-19] MEDS: buPROPion SR TAB.SR* 100 MG PO SCH (07:23)
[2018-10-19] MEDS: Sertraline* 50 MG TAB PO SCH (07:23)
[2018-10-19] MEDS: Ondansetron INJ* 2 MG/ML VIAL IV PRN (07:28)
[2018-10-19] MEDS ORDERED: oxyCODONE/Acetamin 5/325 MG* TAB PO PRN (08:21)
[2018-10-19 11:28] LABS: ABS Lymphocytes 0.6 10^3/ul (1.0-4.8); ABS Monocytes 0.8 10^3/ul (0-0.8); Eosinophil % 0.1 %; Hematocrit 27 % (35-47); Hemoglobin 9.2 g/dL (12.0-16.0); Lymphocyte % 8.5 %; Mean Corpuscular HGB Conc 34 g/dL (31-36); Mean Corpuscular Hemoglobin 32 pg (27-31); Mean Corpuscular Volume 94 fL (80-97); Mean Platelet Volume 7.6 fL (7.4-10.4); Platelet Count 168 10^3/uL (150-450); Red Blood Count 2.88 10^6 /uL (3.70-4.87); Red Cell Distribution Width 13 % (10-15); White Blood Count 7.4 10^3/uL (3.5-10.8)
[2018-10-19] MEDS: Ibuprofen TAB* 600 MG PO PRN ×2 (12:27→21:10)
[2018-10-20 05:24] LABS: Hematocrit 23 % (35-47); Mean Corpuscular HGB Conc 34 g/dL (31-36); Mean Corpuscular Hemoglobin 32 pg (27-31); Mean Corpuscular Volume 94 fL (80-97); Mean Platelet Volume 7.5 fL (7.4-10.4); Platelet Count 138 10^3/uL (150-450); Red Blood Count 2.45 10^6 /uL (3.70-4.87); Red Cell Distribution Width 13 % (10-15); White Blood Count 4.7 10^3/uL (3.5-10.8)
[2018-10-20 07:34] VITALS: BP 92/51
[2018-10-20] MEDS: Sertraline* 50 MG TAB PO SCH (09:00)
[2018-10-20] MEDS: buPROPion SR TAB.SR* 100 MG PO SCH (09:00)
[2018-10-20] MEDS: Ibuprofen TAB* 600 MG PO PRN (09:00)
--- NOTE | 2018-10-22 11:07 | DS ---
CC: [facility] DISCHARGE SUMMARY: DATE OF ADMISSION: DATE OF DISCHARGE: HISTORY OF PRESENT ILLNESS: The patient is a 38-year-old 0, para 0 with a known large fibroid uterus. She is status post 2 uterine artery embolizations in an attempt to decrease the size of the fibroids and the amount of blood loss with her periods. She had decreased blood loss with her periods after the uterine artery embolization; however, continued to have pelvic pressure and pelvic pain and wanted definitive treatment. She does not plan . Supracervical Hysterectomy was performed on 10/18/18. The patient had a laparotomy with a Pfannenstiel incision and a supracervical hysterectomy. Uterus was approximately 18- to 20-week size with a large 12 cm fibroid at the fundus and an approximately 4 cm fibroid on the anterior lower segment. The ovaries appeared normal. The fallopian tubes appeared normal. Intraoperative EBL was 100cc. The patient did well postoperatively. On postop day 1, she was advanced to regular diet. She was ambulating around the unit, [employer] was discontinued and she was taking by mouth pain medications. On postop day 1, hemoglobin and hematocrit were 9.5/28, that was repeated 5 hours later and was 9.2/27. Her vital signs were stable. Her urine output was excellent. She continued to do well postoperatively and on postop day 2, her hemoglobin was 8, hematocrit 23. She was overall feeling well, ambulating, not lightheaded , tolerating a regular diet, passing gas, and wanted to go home. She was discharged with instructions. [id number]/[facility] #: [id number] MARY ANN
== END 2018-10-20 10:39 | disposition home or self-care (01) | DRG 519 ==
LOC: AA 05:56 → SSU 12:03
PROVIDERS: ADMIT Obstetrics & Gynecology; ATTEND Obstetrics & Gynecology
PROC: 0UT90ZL Resection of Uterus, Supracervical, Open Approach (ICD-10-PCS; principal; 2018-10-18 07:30)
DX: D25.9 Leiomyoma of uterus, unspecified (principal); F41.9 Anxiety disorder, unspecified; F32.9 Major depressive disorder, single episode, unspecified; D64.9 Anemia, unspecified; N94.6 Dysmenorrhea, unspecified; Z82.49 Family history of ischemic heart disease and other diseases of the circulatory system; Z72.89 Other problems related to lifestyle; Z87.891 Personal history of nicotine dependence
CPT/HCPCS: 36415; 81025; 85025; 85027; 86850; 86900; 86901; 88307; A9270-GY; J0330; J0690; J1100; J2250; J2270; J2405; J2704; J3010